=== PATIENT | female | born 1985 | race Caucasian/White ===

== ENCOUNTER 2017-10-17 21:48 | Emergency (ER) | payer SELFPAY ==
[~2017-10-17] VITALS: Ht 157.5 cm; Wt 91.6 kg
[2017-10-17 21:53] VITALS: Ht 157.5 cm; Wt 91.6 kg
[2017-10-17 23:20] VITALS: BP 129/81
== END 2017-10-17 23:20 | disposition home or self-care (01) ==
LOC: ED 21:48
DX: T63.441A Toxic effect of venom of bees, accidental (unintentional), initial encounter (principal); R07.89 Other chest pain; R07.0 Pain in throat; J45.909 Unspecified asthma, uncomplicated; Z88.5 Allergy status to narcotic agent; Z88.6 Allergy status to analgesic agent; Y92.89 Other specified places as the place of occurrence of the external cause
CPT/HCPCS: J2930; Q0163